=== PATIENT | female | born 1955 | race Caucasian/White ===

== ENCOUNTER 2020-04-17 14:02 | Emergency (ER) | payer BC, MEDICARE ==
[~2020-04-17] VITALS: Ht 162.6 cm; Wt 90.9 kg
[~2020-04-17 14:02] MED LIST: AMBR10TA3 PO; ASPI-1264 PO; ATOR20TA PO; CLON-527 PO; CYCL-394 PO; DULO-31 PO; FURO-150 PO; GABA600T13 PO; METF500T PO; POTA10TA10 PO; SILD20TA PO; TIZA4TAB11 PO; TRAZ-256 PO; TREP5VIA IV
[2020-04-17 15:14] LABS: BASOPHILS # (AUTO) 0.1 X10'3 (0-0.2); BASOPHILS % (AUTO) 1.1 % (0-1); EOSINOPHILS # (AUTO) 0.2 X10'3 (0-0.9); EOSINOPHILS % (AUTO) 4.4 % (0-6); HEMOGLOBIN 12.7 g/dl (12.0-16.0); LYMPHOCYTES # (AUTO) 1.9 X10'3 (1.1-4.8); LYMPHOCYTES % (AUTO) 35.7 % (21-51); MEAN CORPUSCULAR HEMOGLOBIN 28.3 PG (27.0-31.0); MEAN CORPUSCULAR HGB CONC 33.4 g/dL (33.0-36.5); MEAN CORPUSCULAR VOLUME 84.6 FL (78-98); MEAN PLATELET VOLUME 8.8 FL (7.4-10.4); MONOCYTES # (AUTO) 0.3 X10'3 (0-0.9); MONOCYTES % (AUTO) 6.2 % (2-12); NEUTROPHILS # (AUTO) 2.8 X10'3 (1.8-7.7); NEUTROPHILS % (AUTO) 52.6 % (42-75); PLATELET COUNT 202 X10'3 (140-440); RED CELL DISTRIBUTION WIDTH 13.9 % (11.5-14.5); WHITE BLOOD COUNT 5.2 X10'3 (4.5-11.0)
[2020-04-17 15:46] LABS: ALANINE AMINOTRANSFERASE 32 U/L (12-78); ALBUMIN 3.7 G/DL (3.4-5.0); ALKALINE PHOSPHATASE 74 IU/L (46-116); ANION GAP 10 (8-16); ASPARTATE AMINO TRANSFERASE 24 U/L (10-37); BILIRUBIN,TOTAL 0.3 MG/DL (0.1-1.0); BLOOD UREA NITROGEN 13 MG/DL (7-18); BUN/CREATININE RATIO 17.8 (6.6-38.0); CALCIUM 8.5 MG/DL (8.5-10.1); CHLORIDE 107 MMOL/L (99-107); CREATININE 0.73 MG/DL (0.40-0.90); GLUCOSE 98 MG/DL (70-104); SODIUM 143 MMOL/L (135-145); TOTAL CARBON DIOXIDE 25.7 MMOL/L (24-32); TOTAL PROTEIN 7.4 G/DL (6.4-8.2); eGFR 81 ML/MIN
[2020-04-17] MEDS ORDERED: pantoprazole 40 MG vial IV ONE (15:55)
[2020-04-17] MEDS ORDERED: furosemide 10 MG/1 ML 10ml inj IV ONE (15:55)
[2020-04-17] MEDS ORDERED: ondansetron/PF 4mg/2ml inj IV ONE (15:55)
[2020-04-17] MEDS ORDERED: potassium Cl 20 mEq SR tablet PO STA (16:30)
[2020-04-17 17:44] VITALS: BP 109/69
[2020-04-17] MEDS ORDERED: potassium Cl 20 mEq SR tablet PO ONE (17:45)
[2020-04-17] MEDS ORDERED: PANT-47 PO (17:51)
[2020-04-17] MEDS ORDERED: ONDA8TAB13 PO (17:51)
== END 2020-04-17 18:03 | disposition home or self-care (01) ==
LOC: ER 14:03
DX: R06.00 Dyspnea, unspecified (principal); R10.13 Epigastric pain; R05 Cough; J02.9 Acute pharyngitis, unspecified; R19.7 Diarrhea, unspecified; R06.02 Shortness of breath; R13.0 Aphagia; R11.10 Vomiting, unspecified; J34.89 Other specified disorders of nose and nasal sinuses; I25.10 Atherosclerotic heart disease of native coronary artery without angina pectoris; I10 Essential (primary) hypertension; F32.9 Major depressive disorder, single episode, unspecified; Z90.49 Acquired absence of other specified parts of digestive tract; Z88.5 Allergy status to narcotic agent; Z79.82 Long term (current) use of aspirin; Z79.899 Other long term (current) drug therapy
CPT/HCPCS: 36415; 71046; 80053; 83605; 83880; 85025; 87040; 96374; 96375; 99284; C9113; J1940; J2405

== ENCOUNTER 2020-09-25 12:41 | Outpatient (CLI) | payer BC, MEDICARE ==
[~2020-09-25 12:41] MED LIST changes: +ONDA8TAB13 PO; +PANT-47 PO
== END 2020-09-25 23:59 | disposition home or self-care (01) ==
LOC: CARD DIAG 12:41
PROVIDERS: ATTEND Internal Medicine Pulmonary Disease
DX: I08.2 Rheumatic disorders of both aortic and tricuspid valves (principal); T50.905A Adverse effect of unspecified drugs, medicaments and biological substances, initial encounter; X58.XXXA Exposure to other specified factors, initial encounter
CPT/HCPCS: 93306; 94618

== ENCOUNTER 2021-03-10 16:03 | Emergency (ER) | payer BC ==
[~2021-03-10] VITALS: Ht 162.6 cm; Wt 82.7 kg
[2021-03-10 17:06] LABS: BASOPHILS # (AUTO) 0.1 X10'3 (0-0.2); BASOPHILS % (AUTO) 1.1 % (0-1); EOSINOPHILS # (AUTO) 0.3 X10'3 (0-0.9); HEMATOCRIT 36.8 % (35.0-45.0); HEMOGLOBIN 12.7 g/dl (12.0-16.0); LYMPHOCYTES # (AUTO) 1.8 X10'3 (1.1-4.8); LYMPHOCYTES % (AUTO) 36.1 % (21-51); MEAN CORPUSCULAR HEMOGLOBIN 29.4 PG (27.0-31.0); MEAN CORPUSCULAR HGB CONC 34.4 g/dL (33.0-36.5); MEAN CORPUSCULAR VOLUME 85.4 FL (78-98); MEAN PLATELET VOLUME 8.8 FL (7.4-10.4); MONOCYTES # (AUTO) 0.4 X10'3 (0-0.9); MONOCYTES % (AUTO) 7.4 % (2-12); NEUTROPHILS # (AUTO) 2.6 X10'3 (1.8-7.7); NEUTROPHILS % (AUTO) 50.4 % (42-75); PLATELET COUNT 186 X10'3 (140-440); RED BLOOD COUNT 4.31 X10'6 (4.20-5.60); RED CELL DISTRIBUTION WIDTH 13.8 % (11.5-14.5); WHITE BLOOD COUNT 5.1 X10'3 (4.5-11.0)
[2021-03-10 17:14] LABS: ALANINE AMINOTRANSFERASE 21 U/L (12-78); ALBUMIN 3.6 G/DL (3.4-5.0); ALKALINE PHOSPHATASE 71 IU/L (46-116); ANION GAP 8 (8-16); ASPARTATE AMINO TRANSFERASE 20 U/L (10-37); BILIRUBIN,TOTAL 0.3 MG/DL (0.1-1.0); BLOOD UREA NITROGEN 11 MG/DL (7-18); BUN/CREATININE RATIO 14.9 (6.6-38.0); CALCIUM 8.2 MG/DL (8.5-10.1); CHLORIDE 107 MMOL/L (99-107); CREATININE 0.74 MG/DL (0.40-0.90); GLUCOSE 95 MG/DL (70-104); POTASSIUM 3.7 MMOL/L (3.5-5.1); SODIUM 139 MMOL/L (135-145); TOTAL CARBON DIOXIDE 23.8 MMOL/L (24-32); TOTAL PROTEIN 7.1 G/DL (6.4-8.2); eGFR 79 ML/MIN
[2021-03-10] MEDS ORDERED: dexamethasone sod phosphate 10mg/ml inj IV STA (18:36)
[2021-03-10] MEDS ORDERED: ketorolac tromethamine 15mg/ml inj. IV ONE (18:40)
[2021-03-10] MEDS ORDERED: diphenhydrAMINE 50 mg/ml inj IV ONE (18:40)
[2021-03-10] MEDS ORDERED: normal saline 1000ML IV soln IVB ONE (18:40)
[2021-03-10] MEDS ORDERED: metoclopramide 5 mg/ml inj IV ONE (18:40)
--- NOTE | 2021-03-10 19:31 | NUR ---
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 Patient tollerated well. Benadryl, Toradol, other Rx's given IV. Patient complains of migrane headache. Warm blankets given.
--- NOTE | 2021-03-10 19:45 | NUR ---
Patient up to bathroom with assist to void. Urine sample will be collected. CCMS.
[2021-03-10 20:11] LABS: CLARITY,URINE CLEAR (Clear); COLOR,URINE YELLOW (Yellow); GLUCOSE, URINE NEGATIVE (Neg); KETONES,URINE NEGATIVE (Neg); LEUKOCYTE ESTERASE ,URINE MODERATE (Neg); NITRITES, URINE NEGATIVE (Neg); OCCULT BLOOD,URINE NEGATIVE (Neg); PROTEIN,URINE NEGATIVE (Neg); UROBILINOGEN,URINE 0.2 E.U/dL (0.2-1.0)
[2021-03-10 20:20] LABS: UA COLLECTION TYPE CLN CATCH MIDSTREAM
[2021-03-10 20:21] LABS: BACTERIA,URINE NONE SEEN /HPF (Neg); RBC,URINE NONE SEEN /HPF (0-2); SQUAMOUS EPITHELIAL CELL,UR FEW /LPF (FEW); WBC,URINE 0-4 /HPF (0-4)
[2021-03-10] MEDS ORDERED: PRED20TA PO (20:29)
[2021-03-10 21:07] VITALS: BP 119/62
== END 2021-03-10 21:09 | disposition home or self-care (01) ==
LOC: ER 16:04
DX: E86.0 Dehydration (principal); Z20.822 Contact with and (suspected) exposure to COVID-19; J30.9 Allergic rhinitis, unspecified; I25.10 Atherosclerotic heart disease of native coronary artery without angina pectoris; I10 Essential (primary) hypertension; F32.9 Major depressive disorder, single episode, unspecified; Z90.49 Acquired absence of other specified parts of digestive tract; Z88.5 Allergy status to narcotic agent; Z79.82 Long term (current) use of aspirin; Z79.84 Long term (current) use of oral hypoglycemic drugs; Z79.899 Other long term (current) drug therapy
CPT/HCPCS: 36415; 71045; 80053; 81001; 83880; 84484; 85025; 87081; 87088; 87635; 87880; 93005; 96361; 96374; 96375; 99285; C9803; J1100; J1200; J1885; J2765; J7030

== ENCOUNTER 2022-03-27 15:23 | Emergency (ER) | payer OTHER ==
[~2022-03-27] VITALS: Ht 172.7 cm; Wt 96.0 kg
[~2022-03-27 15:23] MED LIST changes: +POTA-188 PO; -POTA10TA10 PO
[2022-03-27 15:36] VITALS: BP 141/61
[2022-03-27] MEDS ORDERED: ketorolac trometh. 30mg/ml inj. IV ONE (17:15)
[2022-03-27] MEDS ORDERED: metoclopramide 5 mg/ml inj IV ONE (17:15)
[2022-03-27] MEDS ORDERED: normal saline 1000ml 1,000 ML IV ONE (17:15)
[2022-03-27] MEDS ORDERED: diphenhydrAMINE 50 mg/ml inj IV ONE (17:15)
[2022-03-27 18:02] LABS: BASOPHILS # (AUTO) 0.1 X10'3 (0-0.2); BASOPHILS % (AUTO) 1.3 % (0-1); EOSINOPHILS # (AUTO) 0.2 X10'3 (0-0.9); HEMATOCRIT 38.2 % (35.0-45.0); HEMOGLOBIN 13.1 g/dl (12.0-16.0); LYMPHOCYTES # (AUTO) 1.7 X10'3 (1.1-4.8); LYMPHOCYTES % (AUTO) 34.6 % (21-51); MEAN CORPUSCULAR HEMOGLOBIN 27.9 PG (27.0-31.0); MEAN CORPUSCULAR HGB CONC 34.1 g/dL (33.0-36.5); MEAN CORPUSCULAR VOLUME 81.6 FL (78-98); MEAN PLATELET VOLUME 8.5 FL (7.4-10.4); MONOCYTES # (AUTO) 0.4 X10'3 (0-0.9); MONOCYTES % (AUTO) 7.4 % (2-12); NEUTROPHILS # (AUTO) 2.6 X10'3 (1.8-7.7); NEUTROPHILS % (AUTO) 51.7 % (42-75); PLATELET COUNT 152 X10'3 (140-440); RED BLOOD COUNT 4.69 X10'6 (4.20-5.60); RED CELL DISTRIBUTION WIDTH 14.5 % (11.5-14.5)
[2022-03-27 18:25] LABS: ALANINE AMINOTRANSFERASE 23 U/L (12-78); ALBUMIN 3.8 G/DL (3.4-5.0); ALKALINE PHOSPHATASE 83 IU/L (46-116); ANION GAP 12 (8-16); ASPARTATE AMINO TRANSFERASE 19 U/L (10-37); BILIRUBIN,TOTAL 0.3 MG/DL (0.1-1.0); BLOOD UREA NITROGEN 13 MG/DL (7-18); BUN/CREATININE RATIO 18.3 (6.6-38.0); CALCIUM 8.6 MG/DL (8.5-10.1); CHLORIDE 111 MMOL/L (99-107); CREATININE 0.71 MG/DL (0.40-0.90); GLUCOSE 91 MG/DL (70-104); SODIUM 143 MMOL/L (135-145); TOTAL CARBON DIOXIDE 19.9 MMOL/L (24-32); TOTAL PROTEIN 7.6 G/DL (6.4-8.2); eGFR 83 ML/MIN
[2022-03-27 18:31] LABS: POTASSIUM 2.9 MMOL/L (3.5-5.1)
[2022-03-27] MEDS ORDERED: potassium CL 10mEq/100ml bag 100 ML IV SCH (19:05)
[2022-03-27] MEDS ORDERED: POTASSIUM BICARB 20meq eff tab 20 MEQ TABLET.EFF PO SCH (19:05)
== END 2022-03-28 | disposition left against medical advice (07) ==
LOC: ER 15:23
DX: R53.1 Weakness (principal); I11.9 Hypertensive heart disease without heart failure; F32.A Depression, unspecified; Z88.6 Allergy status to analgesic agent; Z79.82 Long term (current) use of aspirin; Z79.899 Other long term (current) drug therapy; Z79.84 Long term (current) use of oral hypoglycemic drugs
CPT/HCPCS: 36415; 80053; 84484; 85025; 93005; 99284

== ENCOUNTER 2022-04-03 10:22 | Outpatient (CLI) | payer OTHER | END 2022-04-03 23:59 | disposition home or self-care (01) | LOC: RAD 10:22 | PROVIDERS: ATTEND Internal Medicine Pulmonary Disease | DX: I35.0 Nonrheumatic aortic (valve) stenosis (principal); I27.20 Pulmonary hypertension, unspecified | CPT/HCPCS: 93306 ==